=== PATIENT | male | born 1955 | race Caucasian/White ===

== ENCOUNTER → 2018-11-20 | Outpatient (CLI) | payer OTHER, MEDICAID ==
[~2018-11-20] MED LIST: IOPAMIDOL (ISOVUE-300) 100 ML BTL ONE
== END ==
LOC: FIMAGING 10:16
PROVIDERS: ATTEND Urology
DX: C61 Malignant neoplasm of prostate (principal); S22.41XD Multiple fractures of ribs, right side, subsequent encounter for fracture with routine healing; R93.7 Abnormal findings on diagnostic imaging of other parts of musculoskeletal system
CPT/HCPCS: 74177; 78306; A9503; Q9967